=== PATIENT | female | born 1985 | race Caucasian/White ===

== ENCOUNTER 2023-10-30 19:10 | Outpatient (REF) | payer BC, SELFPAY ==
[2023-11-05 04:08] LABS: Age Gdln ACOG Testing Note (.); HPV Aptima Negative (Negative); IGP, Aptima HPV, rfx 16/18,45 Note (.)
== END 2023-10-30 19:11 | disposition home or self-care (01) ==
LOC: LAB 19:10
PROVIDERS: Visit Provider Obstetrics & Gynecology
DX: Z01.419 Encounter for gynecological examination (general) (routine) without abnormal findings (principal)
CPT/HCPCS: 87624; G0145

== ENCOUNTER 2024-12-14 01:16 | Emergency (ER) | payer BC, SELFPAY ==
[2024-12-14] VITALS (21 sets, daily range): BP systolic 83–108; BP diastolic 55–74; PULSE 82; TEMP 36.6; O2SAT 96–100; BMI 33.5
--- OUTSIDE RECORDS SUMMARY | 2024-12-14 01:23 | XMS_ITS | CCD ---
Author Organization [facility]ini[facility] Care Team Providers Care Awning Installer Name Role Phone ARISTIDES ., DR KELLY Consulting Unavailable ARISTIDES ., DR KELLY Primary Care Unavailable ARISTIDES ., DR KELLY Admitting Unavailable ARISTIDES ., DR KELLY Attending Unavailable ARISTIDES ., DR KELLY Primary Care Unavailable RADHA, TAHIR Attending Unavailable RADHA, TAHIR Consulting Unavailable RADHA, TAHIR Admitting Unavailable ARISTIDES ., DR KELLY Attending Unavailable ARISTIDES ., DR KELLY Consulting Unavailable ARISTIDES ., DR KELLY Primary Care Unavailable ARISTIDES ., DR KELLY Admitting Unavailable ARISTIDES ., DR KELLY Attending Unavailable ARISTIDES ., DR KELLY Primary Care Unavailable ARISTIDES ., DR KELLY Admitting Unavailable ARISTIDES ., DR KELLY Attending Unavailable ARISTIDES ., DR KELLY Consulting Unavailable ARISTIDES ., DR KELLY Primary Care Unavailable ARISTIDES ., DR KELLY Admitting Unavailable GEMBUS, NICO Consulting Unavailable ADAM CAMACHO Consulting Unavailable ARISTIDES ., DR KELLY Consulting Unavailable ARISTIDES ., DR KELLY Primary Care Unavailable ARISTIDES ., DR KELLY Admitting Unavailable ARISTIDES ., DR KELLY Attending Unavailable ANUJA, GORDO Attending Unavailable ANUJA, GORDO Attending Unavailable ANUJA, GORDO Attending Unavailable ANUJA, GORDO Attending Unavailable ANUJA, GORDO Attending Unavailable ANUJA, GORDO Attending Unavailable ANUJA, GORDO Attending Unavailable Problems Active Problems Problem Classification Problem Date Documented Da te Episodic/Chronic Other nutritional; endocrine; and metabolic disorders (1 source) Obesity, unspecified; Translations: [OBESITY UNSPECIFIED] Onset: 10-03-2022 Chronic Other nutritional; endocrine; and metabolic disorders (1 source) Body mass index (BMI) 36.0-36.9, adult; Translations: [BODY MASS INDEX BMI 36.0-36.9 ADULT] Onset: 10-03-2022 Chronic Other upper respiratory infections (4 sources) Acute pharyngitis, unspecified; Translations: [ACUTE PHARYNGITIS UNSPECIFIED] Onset: 02-10-2023 Episodic Unclassified (1 source) CONTACT W/AND (SUSP) EXPOS COVID-19; Translations: [CONTACT W/AND (SUSP) EXPOS COVID-19] Onset: 10-03-2022 Past or Other Problems Problem Classification Problem Date Documented Date Episodic/Chronic Contraceptive and procreative management (5 sources) Encounter for sterilization; Translations: [ENCOUNTER FOR STERILIZATION] Onset: 09-21-2022 Episodic Immunizations and screening for infectious disease (1 source) Encounter for screening for human papillomavirus (HPV); Translations: [ENC SCREENING HUMAN PAPILLOMAVIRUS] Onset: 07-16-2022 Episodic Other nutritional; endocrine; and metabolic disorders (1 source) Abnormal weight gain; Translations: [ABNORMAL WEIGHT GAIN] Onset: 07-16-2022 Episodic Other screening for suspected conditions (not mental disorders or infectious disease) (4 sources) Encounter for screening for malignant neoplasm of cervix; Translations: [ENC SCREENING MALIG NEOPLASM CERV] Onset: 07-15-2022 Episodic Residual codes; unclassified (1 source) Acquired absence of other specified parts of digestive tract; Translations: [ACQ ABSENCE OTH PART DIGESTV TRACT] Onset: 10-03-2022 Episodic Results Test Name Value Interpretation Reference Range Facility STREPT SCREENon 02-10-2023 STREP SCREEN A Positive Abnormal NEGATIVE [facility] Comment on above: Performed By: #### S SCRN #### [facility] [address] [place] [address] Dr. Imtiaz Ramírez CBC AUTO DIFFon 09-27-2022 BASO # 0.0 103/ul Normal 0.0-0.1 [facility] Comment on above: Performed By: #### C BC #### [facility] [address] [address] [address] Imtiaz Ramírez Basophils/100 WBC (Bld) 0.4 % Normal 0.2-2.0 [facility] Comment on above: Performed By: #### C BC #### [facility] [address] [place] [address] Dr. Imtiaz Ramírez EO # 0.1 103/ul Normal 0.0-0.7 [facility] Comment on above: Performed By: #### C BC #### [facility] [address] [place] [address] Dr. Imtiaz Ramírez Eosinophils/100 WBC (Bld) 1.7 % Normal 0.9-7.0 [facility] Comment on above: Performed By: #### C BC #### [facility] [address] [place] [address] Dr. Imtiaz Ramírez Erythrocyte distribution width (RBC) [Ratio] 11.3 % Normal 11.0-15.0 [facility] Comment on above: Performed By: #### C BC #### [facility] [address] [place] [address] Dr. Imtiaz Ramírez Hematocrit (Bld) [Volume fraction] 40.7 % Normal 36.0-48.0 [facility] Comment on above: Performed By: #### C BC #### [facility] [address] [place] [address] Dr. Imtiaz Ramírez Hemoglobin (Bld) [Mass/Vol] 13.7 g/dL Normal 12.0-16.0 [facility] Comment on above: Performed By: #### C BC #### [facility] [address] [place] [address] Dr. Imtiaz Ramírez IG # 0.01 10e3/ul Normal 0.00-0.03 [facility] Comment on above: Performed By: #### C BC #### [facility] [address] [place] [address] Dr. Imtiaz Ramírez IG % 0.2 % Normal 0.0-0.5 [facility] Comment on above: Performed By: #### C BC #### [facility] [address] [place] [address] Dr. Imtiaz Ramírez LYMPH # 2.1 103/ul Normal 1.2-3.8 [facility] Comment on above: Performed By: #### C BC #### [facility] [address] [place] [address] Dr. Imtiaz Ramírez Lymphocytes/100 WBC (Bld) 43.3 % Normal 20.5-60.0 [facility] Comment on above: Performed By: #### C BC #### [facility] [address] [place] [address] Dr. Imtiaz Ramírez MANUAL DIFF REQ NO Normal [facility] Comment on above: Performed By: #### C BC #### [facility] [address] [place] [address] Dr. Imtiaz Ramírez MCH (RBC) [Entitic mass] 29.9 pg Normal 26.7-34.0 [facility] Comment on above: Performed By: #### C BC #### [facility] [address] [place] [address] Dr. Imtiaz Ramírez MCHC (RBC) [Mass/Vol] 33.7 g/dL Normal 29.9-35.2 [facility] Comment on above: Performed By: #### C BC #### [facility] [address] [place] [address] Dr. Imtiaz Ramírez MCV (RBC) [Entitic vol] 88.9 fL Normal 81.0-99.0 [facility] Comment on above: Performed By: #### C BC #### [facility] [address] [place] [address] Dr. Imtiaz Ramírez MONO # 0.5 103/ul Normal 0.3-0.8 [facility] Comment on above: Performed By: #### C BC #### [facility] [address] [place] [address] Dr. Imtiaz Ramírez Monocytes/100 WBC (Bld) 9.5 % Normal 1.7-12.0 [facility] Comment on above: Performed By: #### C BC #### [facility] [address] [place] [address] Dr. Imtiaz Ramírez NEUT # 2.1 103/ul Normal 1.4-6.5 [facility] Comment on above: Performed By: #### C BC #### [facility] [address] [place] [address] Dr. Imtiaz Ramírez Neutrophils/100 WBC (Bld) 44.9 % Normal 43.0-75.0 [facility] Comment on above: Performed By: #### C BC #### [facility] [address] [address] [address] Imitaz Ramírez Platelet mean volume (Bld) [Entitic vol] 10.6 fL Normal 9.5-13.5 [facility] Comment on above: Performed By: #### C BC #### [facility] [address] [address] [address] Imtiaz Ramírez PLT 284 103/ul Normal 150-450 [facility] Comment on above: Performed By: #### C BC #### [facility] [address] [address] [address] Imtiaz Ramírez RBC 4.58 106/ul Normal 4.20-5.40 [facility] Comment on above: Performed By: #### C BC #### [facility] [address] [place] [address] Dr. Imtiaz Ramírez WBC 4.8 103/ul Normal 4.0-11.0 [facility] Comment on above: Performed By: #### C BC #### [facility] [address] [place] [address] Dr. Imtiaz Ramírez [facility] 09[facility]06 SARS-CoV-2 (COVID-19) RNA FOUZIA+probe Ql (Unsp spec) Not detected Normal NOT DETECTED [facility] Comment on above: Result Comment: This test is not yet approved or cleared by the [place] FDA. When there are no FDA-approved or cleared tests available, and other criteria are met, FDA can make tests available under an emergency access mechanism called an Emergency Use Authorization (EUA). The EUA for this test is supported by the Ins[employer] Eng[employer]eman of Health and Human Service's (HHS's) declaration that circumstances exist to justify the emergency use of in vitro diagnostics for the detection and/or diagnosis of the virus that causes COVID-19. This EUA will remain in effect (meaning this test can be used) for the duration of the COVID-19 declaration justifying emergency of IVDs, unless it is terminated or revoked by FDA (after which the test may no longer be used). When diagnostic testing is negative, the possibility of a false negative should be considered in the context of a patient's recent exposures and the presence of clinical signs and symptoms consistent with SARS-CoV-2. Performed By: #### C VDTBH #### [facility] [address] [place] [address] Dr. Imtiaz Ramírez PREG QUANT HCGon 09-27-2022 HCG QUANT 1 mIU/mL Normal [facility] Comment on above: Performed By: #### P REGQNT #### [facility] [address] [place] [address] Dr. Imtiaz Ramírez HCG RANGE SEE BELOW Normal [facility] Comment on above: Result Comment: 5-50 0.2-1 WEEK 50-500 1-2 WEEKS 100-5,000 2-3 WEEKS 500-10,000 3-4 WEEKS 1,000-50,000 4-5 WEEKS 10,000-100,000 5-6 WEEKS 15,000-200,000 6-8 WEEKS 10,000-100,000 2-3 MONTHS Performed By: #### P REGQNT #### [facility] [address] [place] [address] Dr. Imtiaz Ramírez PAP ACOG PANEL 2: 30 to 65on 07-21-2022 . . Normal [facility] Comment on above: Result Comment: Perf ormed at: WB Performed By: #### [id number] #### [facility] [address] [place] [address] Dr. Imtiaz Ramírez Age Gdln ACOG Testing 30-65 Normal [facility] Comment on above: Performed By: #### [id number] #### [facility] [address] [place] [address] Dr. Imtiaz Ramírez DIAGNOSIS: Comment Normal [facility] Comment on above: Result Comment: NEGA TIVE FOR INTRAEPITHELIAL LESION OR MALIGNANCY. Performed at: WB Performed By: #### [id number] #### [facility] [address] [place] [address] Dr. Imtiaz Ramírez HPV Aptima Negative Normal Negative [facility] Comment on above: Result Comment: This nucleic acid amplification test detects fourteen high-risk HPV types (16,18,31,33,35,39,45,51,52,56,58,59,66,68) without differentiation. Performed at: =G Performed By: #### [id number] #### [facility] [address] [place] [address] Dr. Imtiaz Ramírez Methodology: Comment Normal [facility] Comment on above: Result Comment: This liquid based ThinPrep(R) pap test was screened with the use of an image guided system. Performed at: WB Performed By: #### [id number] #### [facility] [address] [place] [address] Dr. Imtiaz Ramírez Note: Comment Normal [facility] Comment on above: Result Comment: The Pap smear is a screening test designed to aid in the detection of premalignant and malignant conditions of the uterine cervix. It is not a diagnostic procedure and should not be used as the sole means of detecting cervical cancer. Both false-positive and false-negative reports do occur. . Performed at: WB Performed By: #### [id number] #### [facility] [address] [place] [address] Dr. Imtiaz Ramírez Performed by: Comment Normal [facility] Comment on above: Result Comment: Anders Foster, Airport Sales Agent (ASCP) Performed at: WB Performed By: #### [id number] #### [facility] [address] [place] [address] Dr. Imtiaz Ramírez Specimen adequacy: Comment Normal [facility] Comment on above: Result Comment: Sati sfactory for evaluation. Endocervical and/or squamous metaplastic cells (endocervical component) are present. Performed at: WB Performed By: #### [id number] #### [facility] [address] [place] [address] Dr. Imtiaz Ramírez CBC AUTO DIFFon 07-15-2022 BASO # 0.0 103/ul Normal 0.0-0.1 [facility] Comment on above: Performed By: #### C BC #### [facility] [address] [place] [address] Dr. Imtiaz Ramírez Basophils/100 WBC (Bld) 0.4 % Normal 0.2-2.0 [facility] Comment on above: Performed By: #### C BC #### [facility] [address] [place] [address] Dr. Imtiaz Ramírez EO # 0.1 103/ul Normal 0.0-0.7 [facility] Comment on above: Performed By: #### C BC #### [facility] [address] [place] [address] Dr. Imtiaz Ramírez Eosinophils/100 WBC (Bld) 1.7 % Normal 0.9-7.0 [facility] Comment on above: Performed By: #### C BC #### [facility] [address] [place] [address] Dr. Imtiaz Ramírez Erythrocyte distribution width (RBC) [Ratio] 11.7 % Normal 11.0-15.0 [facility] Comment on above: Performed By: #### C BC #### [facility] [address] [place] [address] Dr. Imtiaz Ramírez Hematocrit (Bld) [Volume fraction] 38.6 % Normal 36.0-48.0 [facility] Comment on above: Performed By: #### C BC #### [facility] [address] [place] [address] Dr. Imtiaz Ramírez Hemoglobin (Bld) [Mass/Vol] 12.9 g/dL Normal 12.0-16.0 [facility] Comment on above: Performed By: #### C BC #### [facility] [address] [place] [address] Dr. Imtiaz Ramírez IG # 0.02 10e3/ul Normal 0.00-0.03 [facility] Comment on above: Performed By: #### C BC #### [facility] [address] [place] [address] Dr. Imtiaz Ramírez IG % 0.3 % Normal 0.0-0.5 [facility] Comment on above: Performed By: #### C BC #### [facility] [address] [place] [address] Dr. Imtiaz Ramírez LYMPH # 2.3 103/ul Normal 1.2-3.8 [facility] Comment on above: Performed By: #### C BC #### [facility] [address] [place] [address] Dr. Imtiaz Ramírez Lymphocytes/100 WBC (Bld) 30.8 % Normal 20.5-60.0 [facility] Comment on above: Performed By: #### C BC #### [facility] [address] [place] [address] Dr. Imtiaz Ramírez MANUAL DIFF REQ NO Normal [facility] Comment on above: Performed By: #### C BC #### [facility] [address] [place] [address] Dr. Imtiaz Ramírez MCH (RBC) [Entitic mass] 30.2 pg Normal 26.7-34.0 [facility] Comment on above: Performed By: #### C BC #### [facility] [address] [place] [address] Dr. Imtiaz Ramírez MCHC (RBC) [Mass/Vol] 33.4 g/dL Normal 29.9-35.2 [facility] Comment on above: Performed By: #### C BC #### [facility] [address] [place] [address] Dr. Imtiaz Ramírez MCV (RBC) [Entitic vol] 90.4 fL Normal 81.0-99.0 [facility] Comment on above: Performed By: #### C BC #### [facility] [address] [place] [address] Dr. Imtiaz Ramírez MONO # 0.7 103/ul Normal 0.3-0.8 [facility] Comment on above: Performed By: #### C BC #### [facility] [address] [place] [address] Dr. Imtiaz Ramírez Monocytes/100 WBC (Bld) 9.9 % Normal 1.7-12.0 [facility] Comment on above: Performed By: #### C BC #### [facility] [address] [place] [address] Dr. Imtiaz Ramírez NEUT # 4.2 103/ul Normal 1.4-6.5 [facility] Comment on above: Performed By: #### C BC #### [facility] [address] [address] [address] Imtiaz Ramírez Neutrophils/100 WBC (Bld) 56.9 % Normal 43.0-75.0 [facility] Comment on above: Performed By: #### C BC #### [facility] [address] [address] [address] Imtiaz Ramírez Platelet mean volume (Bld) [Entitic vol] 10.7 fL Normal 9.5-13.5 [facility] Comment on above: Performed By: #### C BC #### [facility] [address] [place] [address] Dr. Imtiaz Ramírez PLT 286 103/ul Normal 150-450 [facility] Comment on above: Performed By: #### C BC #### [facility] [address] [place] [address] Dr. Imtiaz Ramírez RBC 4.27 106/ul Normal 4.20-5.40 [facility] Comment on above: Performed By: #### C BC #### [facility] [address] [place] [address] Dr. Imtiaz Ramírez WBC 7.4 103/ul Normal 4.0-11.0 [facility] Comment on above: Performed By: #### C BC #### [facility] [address] [place] [address] Dr. Imtiaz Ramírez FREE T4on 07-15-2022 Free T4 [Mass/Vol] 0.77 ng/dL Normal 0.76-1.46 [facility] Comment on above: Performed By: #### F T4 #### [facility] [address] [place] [address] Dr. Imtiaz Ramírez GLYCOHEMOGLOBIN A1Con 2021 ADA RECOMMENDATION SEE BELOW Normal [facility] Comment on above: Result Comment: ADA RECOMMENDED LIMIT 4.0 - 6.0 ADA THERAPEUTIC TARGET < 7.0 ACTION SUGGESTED > 7.0 Performed By: #### A 1C #### [facility] [address] [place] [address] Dr. Imtiaz Ramírez Glucose [Mass/Vol] 97 mg/dL Normal [facility] Comment on above: Performed By: #### A 1C #### [facility] [address] [place], [place] [address] Dr. Imtiaz Ramírez HbA1c (Bld) [Mass fraction] 5.0 % Normal 4.5-6.2 [facility] Comment on above: Performed By: #### A 1C #### [facility] [address] [place], [place] [address] Dr. Imtiaz Ramírez TSHon 07-15-2022 TSH 3.280 uIU/mL Normal 0.358-3.740 [facility] Comment on above: Performed By: #### T SH #### [facility] [address] [place], [place] [address] Dr. Imtiaz Ramírez Encounters Encounter Date Encounter Type Care Provider Facility Start: 11-16-2024 End: 11-16-2024 ambulatory GORDO ANUJA Not Available Start: 08-24-2024 End: 08-24-2024 ambulatory GORDO ANUJA Not Available Start: 05-25-2024 End: 05-25-2024 ambulatory GORDO ANUJA Not Available Start: 04-22-2024 End: 04-22-2024 ambulatory GORDO ANUJA Not Available Start: 01-22-2024 End: 01-22-2024 ambulatory GORDO ANUJA Not Available Start: 12-25-2023 End: 12-25-2023 ambulatory GORDO ANUJA Not Available Start: 11-27-2023 End: 11-27-2023 ambulatory GORDO ANUJA Not Available Start: 02-10-2023 End: 02-10-[address] LETICIA SALAZAR . Facility:[facility] Start: 10-03-2022 Encounter for prepro cedural laboratory examination DR LETICIA SALAZAR . [facility] Start: 09-30-2022 End: 09-30-[address] LETICIA SALAZAR . Facility[facility] Start: 09-27-2022 End: 09-28-[address] LETICIA SALAZAR . Facility[facility] Start: 09-27-2022 End: 09-28-2022 Encounter for preprocedural laboratory examination DR LETICIA SALAZAR . Facility:[facility] Start: 09-21-2022 Encounter for other preprocedural examination DR LETICIA SALAZAR . [facility] Start: 09-16-2022 End: 09-17-[address] LETICIA SALAZAR . Facility:[facility] Start: 09-16-2022 End: 09-17-2022 Encounter for other preprocedural examination DR LETICIA SALAZAR . Facility:[facility] Start: 07-15-2022 End: 07-15-[address] LETICIA SALAZAR . Facility:[facility] Start: 07-15-2022 End: 07-16-[address] LETICIA SALAZAR . Facility:[facility] Payers Date Payer Category Payer Unknown [id number] 2.16.84 [id number] 1987 Unknown [id number] 2.16.84 [id number] 1987 Unknown [id number] 2.16.84 [id number] 1987 Unknown [id number] 2.16.84 [id number] 1987 Unknown [id number] 2.16.84 [id number] 1987 Unknown [id number] 2.16.84 [id number] 1987 Unknown [id number] 2.16.84 [id number] 1987 Unknown [id number] 2.16.84 [id number] 1987 Unknown [id number] 2.16.84 [id number] 1987 Unknown [id number] 2.16.84 [id number] 1987 Unknown [id number] 2.16.84 [id number] 1987 Unknown [id number] 2.16.84 [id number] 1987 Unknown [id number] 2.16.84 [id number] 1959 Unknown [id number] 1959 Unknown [id number] Clinical Note 09-30-2022 Note Date & Type Note Facility 09-30-2022 Note OPERATIVE NOTE OPERATION DATE: 09/30/2022 PROCEDURE: Robotic Da Elijah assisted bilateral laparoscopic salpingectomy. PREOPERATIVE DIAGNOSIS: Desires permanent sterilization, multiparity. POSTOPERATIVE DIAGNOSIS: Desires permanent sterilization, multiparity. ANESTHESIA: General. SURGEON: Leticia Salazar D.O. FOUNDATION DIGGER: WILIAN Patten URINE OUTPUT: Yellow and clear. FINDINGS: Normal appearing ovaries, uterus and tubes. SPECIMEN: Bilateral tubes. BLOOD LOSS: 10 mL PROCEDURE: The patient was taken back to the OR where she was prepped and draped in the normal sterile fashion after being placed in the dorsal lithotomy position, after being placed under general anesthesia without difficulty. A wet sponge stick was placed into the patient's vagina. Attention was then turned to the patient's abdomen, where a scalpel was used to make a small infraumbilical incision. The S retractors were then used to dissect the underlying layers until the fascia could be seen. The fascia was then grasped with Rahel clamps and tented up. A knife was then used to make a small incision to the fascia. The muscle was identified, at that time two sutures of #0 Vicryl on a GI needle was then used and placed through the fascia. The peritoneum was then identified and entered bluntly. The 10-4 Hortencia was then placed into the patient's abdomen. This was confirmed with direct visualization of the bowel, using the laparoscope. The patient's abdomen was then insufflated using approximately 4 liters of CO2 gas. Survey of the patient's abdomen demonstrated normal appearing ovaries, uterus and tubes. A second and third lateral port, which was 7-8 mm in size and 5 mm in size, was then placed laterally after incision was made in the skin under direct visualization. The patient's tube on the patient's right side was identified. The tube was then tented up using a grasper. The LigaSure was used to transect and coagulate the mesosalpinx from the fimbriated end to the insertion at the uterus; the tube was amputated and removed in its entirety. Excellent hemostasis was noted. This was performed on the contralateral side as well. The lateral ports were then removed under direct visualization with excellent hemostasis. The abdomen was desufflated. All instruments were removed from the patient's abdomen. The fascia was closed using the #0 Vicryl on GI needle. The skin was closed using 4-0 Vicryl subcuticularly. All instruments were removed from the patient's vagina as well. The patient was taken out of the dorsal lithotomy position and placed in the supine position and taken to recovery in stable condition. Sponge, lap and needle counts were correct x2. [facility] Summary Purpose Family History No Family History Records FoundNo Family History Records Found Advance Directives No Advanced Directives Records FoundNo Advanced Directives Records Found Additional Source Comments INFORMATION SOURCE (unrecogn ized section and content) DATE CREATED AUTHOR 02/14/2023 [facility] DATE CREATED AUTHOR AUTHOR'S ORGANIZ ATION 11/17/2024 [facility] FOR RECORDS PERTAINING TO PATIENTS WHO ARE OR HAVE BEEN ENROLLED IN A CHEMICAL DEPENDENCY/SUBSTANCEABUSE PROGRAM, SOME INFORMATION MAY BE OMITTED. This clinical summary was aggregated from multiple sources. Caution should be exercised in using it in the provision of clinical care. This summary normalizes information from multiple sources, and as a consequence, information in this document may materially change the coding, format and clinical context of patient data. In addition, data may be omitted in some cases. CLINICAL DECISIONS SHOULD BE BASED ON THE PRIMARY CLINICAL RECORDS. [facility] [employer] provides no warranty or guarantee of the accuracy or completeness of information in this document.
--- NOTE | 2024-12-14 01:27 | ED_ITS ---
HPI - Nausea/Vomiting/Diarrhea General Chief complaint: Nausea/Vomiting/Diarrhea Stated complaint: FLU LIKE SYMPTOMS Time Seen by Provider: 12/14/24 01:22 Source: patient Mode of arrival: ambulance History of Present Illness HPI Narrative: presents with recurrent vomiting( 3 times ) and watery diarrhea. No pain. Tonight became light headed and everything got dark. She then sat down. Did not pass out and vision returned Related Data Home Medications ?Medication ?Instructions ?Recorded ?Confirmed valacyclovir 500 mg tablet mg 12/14/24 Allergies Allergy/AdvReac Type Severity Reaction Status Date / Time No Known Drug Allergies Allergy Verified 12/14/24 01:24 Review of Systems ROS Status of ROS 10 or more systems reviewed and unremark able except as noted in history and below PFSH PFSH Social History Little interest or pleasure in doing things: not at all Feeling down, depressed, or hopeless: not at all Exam Constitutional Vital Signs, click to edit/add: Last Vital Signs Temp 97.9 F 12/14/24 01:18 Pulse 82 12/14/24 01:18 Resp 16 12/14/24 01:18 BP 102/70 12/14/24 04:02 Pulse Ox 97 12/14/24 04:01 O2 Del Method Room Air 12/14/24 01:18 Common normals: no apparent distress, average body habitus, oriented x3, no limitations, healthy appearing, alert and well nourished [facility] Common normals: normocephalic and head/scalp atraumatic Eye Common normals: PERRL, EOMs intact bilaterally and conjunctivae normal Respiratory Common normals: normal respiratory effort, no retractions, no use of accessory muscles and clear to auscultation bilaterally Cardio Common normals: regular rate, regular rhythm, S1 normal heart sound and S2 normal heart sound GI Common normals: Normal to inspection, nondistended, normoactive bowel sounds present, soft to palpation and non-tender Extremity Common normals: normal to inspection and full ROM Neuro Common normals: oriented x3, CN's II-XII intact bilaterally and moves all extremities Psych Appearance: grossly normal Course Vital Signs Vital signs: Vital Signs Temperature 97.9 F 12/14/24 01:18 Pulse Rate 82 12/14/24 01:18 Respiratory Rate 16 12/14/24 01:18 Blood Pressure 101/62 12/14/24 01:18 Pulse Oximetry 100 12/14/24 01:18 Oxygen Delivery Method Room Air 12/14/24 01:18 Temperature 97.9 F 12/14/24 01:18 Pulse Rate 82 12/14/24 01:18 Respiratory Rate 16 12/14/24 01:18 Blood Pressure 102/70 12/14/24 04:02 Pulse Oximetry 97 12/14/24 04:01 Oxygen Delivery Method Room Air 12/14/24 01:18 MDM - Nausea/Vomiting/Diarrhea MDM Narrative Medical decision making narrative: patient presents with gastroenteritis manifested by recurrent vomiting and diarrhea. near syncopal episode at home and had to sit down to avoid passing out. Feeling better after hydration and zofran. Able to drink H20 discharged home to follow up with her doctor in the next few days Lab Data Labs: Lab Results 12/14/24 12/14/24 Range/Units 01:20 02:55 WBC 14.0 H (4.0-11.0) 10^3/uL RBC 4.84 (4.20-5.40) 10^6/uL Hgb 14.7 (12.0-16.0) g/dL Hct 44.2 (36.0-48.0) % MCV 91.3 (81.0-99.0) fL MCH 30.4 (26.7-34.0) pg MCHC 33.3 (29.9-35.2) g/dL RDW 11.7 (11.0-15.0) % Plt Count 293 (150-450) 10^3/uL MPV 10.9 (9.5-13.5) fL Seg Neuts % (Manual) 96.0 H (43.0-75.0) Band Neutrophils % 0.0 (0-5) % Lymphocytes % (Manual) 0.0 L (20.5-60.0) % Monocytes % (Manual) 3.0 (1.7-12.0) % Eosinophils % (Manual) 0.0 L (0.9-7.0) % Basophils % (Manual) 0.0 L (0.2-2.0) % Neutrophils # (Manual) 13.44 H (1.4-6.5) 10^3/uL Band Neutrophils # 0.0 (0.0-0.3) 10^3/uL Lymphocytes # (Manual) 0.00 L (1.20-3.80) 10^3/uL Monocytes # (Manual) 0.42 (0.30-0.80) 10^3/uL Eosinophils # (Manual) 0.00 (0.00-0.70) 10^3/uL Basophils # (Manual) 0.00 (0.00-0.10) 10^3/uL Toxic Granulation 1+ Sodium 137 (136-145) mmol/L Potassium 4.0 (3.5-5.1) mmol/L Chloride 102 (98-107) mmol/L Carbon Dioxide 25.8 (21.0-32.0) mmol/L Anion Gap 13.2 BUN 14.0 (7.0-18.0) mg/dL Creatinine 0.99 (0.55-1.02) mg/dL Est GFR ( Amer) >60 (>=60 mL/min/1.73m^2) Est GFR (Non-Af Amer) >60 (>=60 mL/min/1.73m^2) BUN/Creatinine Ratio 14.1 Glucose 159 H (74-106) mg/dL Lactate 1.1 (0.4-2.0) mmol/L Calcium 8.5 (8.5-10.1) mg/dL Total Bilirubin 0.7 (0.2-1.0) mg/dL AST 16 (15-37) U/L ALT 23 (14-59) U/L Alkaline Phosphatase 70 (46-116) U/L Total Protein 7.5 (6.4-8.2) g/dL Albumin 3.8 (3.4-5.0) g/dL Globulin 3.7 g/dL Albumin/Globulin Ratio 1.0 Urine Color Yellow (YELLOW) Urine Clarity Clear (CLEAR) Urine pH 6.0 (5.0-9.0) Ur Specific [place] 1.025 (1.005-1.025) Urine Protein Trace (NEG/TRACE) mg/dL Urine Glucose (UA) Negative (NEGATIVE) mg/dL Urine Ketones Trace A (NEGATIVE) mg/dL Urine Occult Blood Negative (NEGATIVE) Urine Nitrite Negative (NEGATIVE) Urine Bilirubin Negative (NEGATIVE) Urine Urobilinogen 0.2 (0.2-1.0) EU/dL Ur Leukocyte Esterase Negative (NEGATIVE) Urine RBC 0-2 (0-2) #/HPF Urine WBC 0-2 A (NONE SEEN) #/HPF Ur Squamous Epith Cells Few A (NONE/RARE) #/LPF Urine Crystals None seen (None Seen) #/HPF Urine Bacteria Small A (NONE SEEN) #/HPF Urine Casts None seen (NONE SEEN) #/LPF Urine Mucus Trace A (NONE SEEN) Ur [place] Indicated[place] [place] Discharge Chief Complaint: Nausea/Vomiting/Diarrhea Clinical Impression: Gastroenteritis, Dehydration Patient Disposition: Home, Self-Care Mode of Transportation: Private Vehicle Prescriptions / Home Meds: No Action valacyclovir 500 mg tablet Print Language: Bulgarian Instructions: Dehydration (ED), Gastroenteritis (ED) Referrals: Physician,Non-Staff, MD [Primary Care Provider] - 1 week
[2024-12-14 01:34] LABS: Hematocrit 44.2 % (36.0-48.0); Hemoglobin 14.7 g/dL (12.0-16.0); Mean Corpuscular HGB Conc 33.3 g/dL (29.9-35.2); Mean Corpuscular Hemoglobin 30.4 pg (26.7-34.0); Mean Corpuscular Volume 91.3 fL (81.0-99.0); Mean Platelet Volume 10.9 fL (9.5-13.5); Platelet Count 293 10^3/uL (150-450); Red Blood Count 4.84 10^6/uL (4.20-5.40); Red Cell Distribution Width 11.7 % (11.0-15.0)
[2024-12-14] MEDS: 0.9 % SODIUM CHLORIDE 1,000 ML 999 ML IV ×2 (01:39→02:54)
[2024-12-14] MEDS: ONDANSETRON PF 4 MG/2 ML VIAL IV (01:39)
[2024-12-14 01:45] LABS: Alanine Aminotransferase 23 U/L (14-59); Albumin Level 3.8 g/dL (3.4-5.0); Alkaline Phosphatase 70 U/L (46-116); Anion Gap 13.2; Aspartate Amino Transferase 16 U/L (15-37); BUN Creatinine Ratio 14.1; Bilirubin Total 0.7 mg/dL (0.2-1.0); Calcium 8.5 mg/dL (8.5-10.1); Carbon Dioxide 25.8 mmol/L (21.0-32.0); Chloride 102 mmol/L (98-107); Estimated GFR (African America >60 (>=60 mL/min/1.73m^2); Estimated GFR (Non-African Ame >60 (>=60 mL/min/1.73m^2); Globulin 3.7 g/dL; Glucose 159 mg/dL (74-106); Sodium 137 mmol/L (136-145); Total Protein 7.5 g/dL (6.4-8.2)
[2024-12-14 01:48] LABS: Lactate/Lactic Acid 1.1 mmol/L (0.4-2.0)
[2024-12-14 01:53] LABS: Segmented Neut Absolute Manual 13.44 10^3/uL (1.4-6.5)
[2024-12-14 03:02] LABS: Bilirubin Urine NEGATIVE (NEGATIVE); Blood Urine NEGATIVE (NEGATIVE); Clarity Urine CLEAR (CLEAR); Color Urine YELLOW (YELLOW); Glucose Urine UA NEGATIVE (NEGATIVE); Ketones Urine TRACE mg/dL (NEGATIVE); Leukocyte Esterase Urine NEGATIVE (NEGATIVE); Nitrite Urine NEGATIVE (NEGATIVE); Protein Urine TRACE mg/dL (NEG/TRACE); Specific Gravity Urine 1.025 (1.005-1.025); Urobilinogen Urine 0.2 EU/dL (0.2-1.0)
[2024-12-14 03:10] LABS: Bacteria Urine SMALL #/HPF (NONE SEEN); Mucus Urine TRACE (NONE SEEN); RBC Urine 0-2 #/HPF (0-2); Squamous Epithelial Cell Urine FEW #/LPF (NONE/RARE); WBC Urine 0-2 #/HPF (NONE SEEN)
[2024-12-14 03:11] LABS: Cast Seen? NONE SEEN #/LPF (NONE SEEN); Crystals Seen? None Seen #/HPF (None Seen); Urine Culture Indicated YES-FRMC
[2024-12-14 11:07] LABS: Monocytes Absolute Manual 0.56 10^3/uL (0.30-0.80)
== END 2024-12-14 04:11 | disposition home or self-care (01) ==
PROVIDERS: Emergency Provider Internal Medicine
DX: E86.0 Dehydration (principal); K52.9 Noninfective gastroenteritis and colitis, unspecified; R82.998 Other abnormal findings in urine
CPT/HCPCS: 36415; 80053; 81001; 83605; 85007; 85027; 87086; 96361; 96374; 99284; J2405

== ENCOUNTER 2025-05-03 15:10 | Outpatient (REF) | payer BC, SELFPAY ==
--- OUTSIDE RECORDS SUMMARY | 2025-05-03 08:30 | XMS_ITS | Encounter Summary ---
Author Organization [facility] Address [address] [place] [address] Care Team Providers Care Processing Supervisor Name Role Phone Singh Sheridan MD Primary Care Provider [phone] Reason for Visit * Reason Comments Well Women Visit Encounter Details Date Type Department Care Team (Late st Contact Info) Description 05/03/2025 8:30 AM EDT Office Visit [facility] [address] [address] Justin Salazar DO [address] [place], [facility] Well woman exam with routine gynecological exam Social History Tobacco Use Types Packs/Day Years Used Date Smoking Tobacco: Never Smokeless Tobacco: Never Alcohol Use Standard Drinks/Week Comments Yes 0 (1 standard drink = 0.6 oz pur e alcohol) occasional alcohol abuse Comments No Sex and Gender Information Value Date Recorded Sex Assigned at Choose not to disclose 10:04 AM EDT Legal Sex Female 7:12 PM EDT Gender Identity Choose not to disclose 10:04 AM EDT Sexual Orientation Not on file documented as of this encounter Last Filed Vital Signs Vital Sign Reading Time Taken Comments Blood Pressure 114/80 05/03/2025 9:01 AM EDT Pulse - - Temperature - - Respiratory Rate - - Oxygen Saturation - - Inhaled Oxygen Concentration - - Weight 94.5 kg (208 lb 4 oz) 05/03/2025 9:01 AM EDT Height - - Body Mass Index 35.75 11/27/2023 8:34 AM EST documented in this encounter Progress Notes * Carmencita Valdez, AUTOMOBILE MECHANIC RADIATOR - 05/03/2025 8:30 AM EDT Reason for Appointment: Patient ID: Belinda Chavez is a 39 y.o. adult who presents for Well Women Visit Patient presents today for Annual Exam. MEDICATIONS Current Outpatient Medications Medication Instructions phentermine (ADIPEX-P) 37.5 mg, Oral, Daily before breakfast valACYclovir (VALTREX) 500 mg, Oral, Every morning ALLERGIES No Known Allergies PROBLEMS Active Ambulatory Problems Diagnosis Date Noted No Active Ambulatory Problems Resolved Ambulatory Problems Diagnosis Date Noted No Resolved Ambulatory Problems Past Medical History: Diagnosis Date Genital herpes simplex type 1 infection Nonsmoker Obesity (BMI 30-39.9) HISTORY PAST MEDICAL HISTORY SOCIAL HISTORY Past Medical History: Diagnosis Date Genital herpes simplex type 1 infection Nonsmoker Obesity (BMI 30-39.9) Social History Tobacco Use Smoking status: Never Smokeless tobacco: Never Substance Use Topics Alcohol use: Yes Comment: occasional alcohol abuse Drug use: Never FAMILY HISTORY Family History Problem Relation Name Age of Onset Hypothyroidism Mother No Known Problems Sister Diabetes type II Maternal Grandmother Lung cancer Maternal Grandfather SURGICAL HISTORY Past Surgical History: Procedure Laterality Date CHOLECYSTECTOMY 11/2016 TUBAL LIGATION 2021 REVIEW OF SYSTEMS Review of Systems: Review of Systems Constitutional: Negative. HENT: Negative. Eyes: Negative. Respiratory: Negative. Cardiovascular: Negative. Gastrointestinal: Negative. Genitourinary: Negative. Musculoskeletal: Negative. Skin: Negative. Neurological: Negative. All other systems reviewed and are negative. Hematological: Negative. Endocrine: Negative. Allergic/Immunologic: Negative. OBJECTIVE Objective: Physical Exam Constitutional: Appearance: Normal appearance. Belinda is well-developed. Genitourinary: Vulva normal. Cardiovascular: Rate and Rhythm: Normal rate and regular rhythm. Pulmonary: Effort: Pulmonary effort is normal. Breath sounds: Normal breath sounds. Abdominal: General: Bowel sounds are normal. There is no distension. Palpations: Abdomen is soft. Tenderness: There is no abdominal tenderness. There is no guarding or rebound. Musculoskeletal: General: No swelling. Normal range of motion. Right lower leg: No edema. Left lower leg: No edema. Neurological: Mental Status: Belinda is alert and oriented to person, place, and time. Skin: General: Skin is warm and dry. Psychiatric: Mood and Affect: Mood normal. Behavior: Behavior normal. Vitals and nursing note reviewed. Exam conducted with a industrial painter present. Vitals: Estimated body mass index is 35.75 kg/m?? as calculated from the following: Height as of 11/27/23: 5' 4 . Weight as of this encounter: 208 lb 4 oz. BP: 114/80 Patient's last menstrual period was 04/28/2025 (exact date). ASSESSMENT & PLAN ICD-10-CM 1. Well woman exam with routine gynecological exam Z01.419 Pap Smear HPV DNA probe, amplified Orders Placed This Encounter Procedures HPV DNA probe, amplified Annual Wellness Exam: Patient presents today for routine annual exam. Patient states she has no current complaints. Patients vitals were reviewed and within normal limits. Growth and development is noted to be appropriate for age. Menstrual history is noted to be regular with no concerns reported. No mental health concerns was expressed. Pap Smear: Speculum was inserted into the vagina and pap was obtained without difficulty. HPV testing was performed per age guideline. Patient was advised that pap results could take anywhere from 7 to 10 days to receive and our office will reach out to the patient with those once we have them. Patient can also view results via [employer]. I reinforced importance of condom use for STI prevention. Patient declined cultures to be performed with today's visit. Breast Exam: Upon examination, clinical breast exam was noted to be normal. Patient was counseled on breast self-awareness, including the importance of knowing what is normal for her own breasts and promptly reporting any changes such as new lumps, skin dimpling, nipple discharge, or pain. Screening mammogram recommended annually beginning at age 40 or earlier if risk factors are present. Discussed signs and symptoms of breast cancer and when to seek medical attention. Answered all patient questions. Contraceptive Counseling (if applicable): Patient is currently using tubal as a form of contraceptive. Follow Up: Patient is to return to our office in one year for annual exam unless needed otherwise. Documented by Carmencita Valdez LPN on behalf of: Justin Salazar DO documented in this encounter Plan of Treatment Upcoming Encounters Date Type Department Care Team (Late st Contact Info) Description 06/08/2025 3:50 PM EDT [facility] [address] [address] Gwen Rodarte PA [address] [place] [address] Scheduled Orders Name Type Priority Associated Diagnoses Orde r Schedule Pap Smear Pathology and Cytology Routine Well woman exam with routine gynecological exam Ordered: 05/03/2025 HPV DNA probe, amplified Microbiology Routine Well woman exam with routine gynecological exam Ordered: 05/03/2025 documented as of this encounter Visit Diagnoses Diagnosis Well woman exam with routine gynecological exam Routine gynecological examination documented in this encounter Care Teams Processing Supervisor Relationship Specialty Start Date End Date Singh Sheridan MD [address] [facility] [place] [address] PCP - General Family Medicine 02/14/25 documented as of this encounter
--- OUTSIDE RECORDS SUMMARY | 2025-05-03 15:13 | XMS_ITS | Clinical Summary ---
Author Organization [facility] Address [address] [facility] [place] [address] Care Team Providers Care Germ Drier Name Role Phone Singh Sheridan MD Primary Care Provider [phone] Allergies No known active allergies Medications valACYclovir (Valtrex) 500 MG tabletIndicati ons:Herpes simplex virus (HSV) hepatitis TAKE ONE TABLET BY MOUTH EVERY MORNING 90 tablet 3 4 Active phentermine (Adipex-P) 37.5 MG tabletIndicati ons:Encounter for weight management Take 1 tablet (37.5 mg) by mouth in the morning. Take before meals. 90 tablet 5 06/15/20 25 Active phentermine (Adipex-P) 37.5 MG tabletIndicati ons:Encounter for weight management Take 1 tablet (37.5 mg) by mouth in the morning. Take before meals. 30 tablet 5 05/03/20 25 Discontinued Encounters Date Type Department Care Team Description 05/03/2025 8:30 AM EDT Office Visit [facility] [address] [place] [phone] Justin Salazar, DO Well woman exam with routine gynecological exam 05/03/2025 Bamboo flowsheet [facility] [address] [place] [address] Justin Salazar DO 05/02/2025 Travel 03/17/2025 3:40 PM EDT Office [place] [address] Gwen Rodarte PA Encounter for weight management 03/17/2025 Bamboo flowsheet [facility] [address] [place] [address] Gwen Rodarte PA 03/16/2025 Travel 02/14/2025 8:30 AM EDT Office Visit [facility] [place] [address] Gwen Rodarte PA Encounter for weight management 02/14/2025 Bamboo flowsheet [facility] [address] [place] [address] Gwen Rodarte PA 02/07/2025 Travel from Last 3 Months Family History Medical History Relation Name Comments Lung cancer Maternal Grandfather Diabetes type II Maternal Grandmother Hypothyroidism Mother No Known Problems Sister Relation Name Status Comments Daughter Alive Father Alive Maternal Grandfather Maternal Grandmother Alive Mother Alive Paternal Grandfather Alive Paternal Grandmother Alive Sister Social History Tobacco Use Types Packs/Day Years Used Date Smoking Tobacco: Never Smokeless Tobacco: Never Tobacco Cessation:Counseling Given: Not Answered Alcohol Use Standard Drinks/Week Comments Yes 0 (1 standard drink = 0.6 oz pur e alcohol) occasional alcohol abuse Comments No Sex and Gender Information Value Date Recorded Sex Assigned at Choose not to disclose 10:04 AM EDT Legal Sex Female 7:12 PM EDT Gender Identity Choose not to disclose 10:04 AM EDT Sexual Orientation Not on file Last Filed Vital Signs Vital Sign Reading Time Taken Comments Blood Pressure 114/80 05/03/2025 9:01 AM EDT Pulse - - Temperature - - Respiratory Rate - - Oxygen Saturation - - Inhaled Oxygen Concentration - - Weight 94.5 kg (208 lb 4 oz) 05/03/2025 9:01 AM EDT Height 162.6 cm (5' 4 ) 11/27/2023 8:34 AM EST Body Mass Index 35.75 11/27/2023 8:34 AM EST Plan of Treatment Upcoming Encounters Date Type Department Care Team (Late st Contact Info) Description 06/08/2025 3:50 PM EDT Office Visit [facility] [address] [place] [address] Gwen Rodarte PA [address] [place] [address] Insurance BCBS Care Teams Germ Drier Relationship Specialty Start Date End Date Singh Sheridan MD [address] [place] [place] [phone] PCP - General Family Medicine 02/14/25
--- OUTSIDE RECORDS SUMMARY | 2025-05-03 15:13 | XMS_ITS | Patient Health Record ---
Author Organization [facility] [place] Address [address] [place] [address] Care Team Providers Care 7Th Grade Teacher Name Role Phone Myra Nye Primary Care Provider Allergies No Known Allergies Reason For Referral No Information Medications Medication SIG (Take, Route, Frequency, Duration) Notes Start Date End Date Status Triamcinolone Acetonide 0.5 % 1 application Externally Twice a day Active valACYclovir HCl 500 MG Oral for 90 Days Active Amoxicillin 500 MG 1 capsule Orally Twi ce a day for 10 days 02/10/2023 Active Aquaphor - as directed Externally Active Mupirocin 2 % 1 application Food Safety Officer ally Twice a day Active Social History Tobacco Use: Social History Observation Description Date Details (start date - stop date) Never Smoker NA - NA Tobacco Use/Smoking Question Answer Notes Patient is a nonsmoker Alcohol Screen (Audit-C) Question Answer Notes Did you have a drink contain ing alcohol in the past year? Yes How often did you have 6 or more drinks on one occasion in the past year? Never (0 point) How many drinks did you have on a typical day when you were drinking in the past year? 3 or 4 drinks (1 point) How often did you have a dri nk containing alcohol in the past year? Less than monthly (1 point) Points 2 Interpretation Negative Problems Problem Type SNOMED Code ICD Code Onset Dates Problem Status W/U Status Risk Notes Problem Cholecystitis (K81.9) Active confirmed Problem Boil ([id number]) Boil (L02.92) Active confirmed Plan Of Treatment No Information Insurance Providers Payer Name Payer Address Payer Phone Subscriber Number Group Number Insured Name Patient Relationship to Insured Coverage Start Date Coverage End Date [employer] ACC[employer] PPO PLUS LOCAL PLAN [address] [place] [phone] [id number] Belinda Chang Self - patient is the insured Medical (General) History Medical History History ICD Code Boil L02.92 Cholecystitis K81.9 Surgical History Surgery Date(Month/Year) Salpingectomy Gallbladder
--- OUTSIDE RECORDS SUMMARY | 2025-05-03 15:13 | XMS_ITS | Encounter Summary ---
Author Organization [facility] Address [address] [facility] [place] [address] Care Team Providers Care School Cleaner Name Role Phone Singh Sheridan MD Primary Care Provider [phone] Encounter Details Date Type Department Care Team (Late Contact Info) Description 05/03/2025 Bamboo flowsheet [facility] [address] [facility] [place] [address] Justin Salazar DO [address] [facility] [address] [facility] [address] [facility] [address] [place], [facility] Social History Tobacco Use Types Packs/Day Years [...] on file documented as of this encounter Plan of Treatment Upcoming Encounters Date Type Department Care Team (Late st Contact Info) Description 06/08/2025 3:50 PM EDT Office Visit [facility] [address] [facility] [place] [address] Gwen Rodarte PA [address] [facility] [address] [facility] [address] [place], [facility] documented as of this encounter Visit Diagnoses Not on filedocumented in this encounter Care Teams School Cleaner Relationship Specialty Start Date End Date Singh Sheridan MD [address] [place] [phone] PCP - General Family Medicine 02/14/25 documented as of this encounter
--- OUTSIDE RECORDS SUMMARY | 2025-05-03 15:13 | XMS_ITS | Encounter Summary ---
Author Organization [facility] Address [address] [facility] [place] [address] Care Team Providers Care Police Booking Officer Name Role Phone Singh Sheridan MD Primary Care Provider [phone] Encounter Details Date Type Department Care Team (Latest Contact Info) Description 05/02/2025 Travel Social History Tobacco Use Types Packs/Day Years [...] Description 06/08/2025 3:50 PM EDT Office Visit [facility] [address] [place] [phone] Gwen Rodarte PA [address] [facility] [address] [place], [place] [id number] documented as of this encounter Visit Diagnoses Not on filedocumented in this encounter Care Teams Police Booking Officer Relationship Specialty Start Date End Date Singh Sheridan MD [address] [facility] [place] [address] PCP - General Family Medicine 02/14/25 documented as of this encounter
--- OUTSIDE RECORDS SUMMARY | 2025-05-03 17:54 | XMS_ITS | CCD ---
Author Organization [facility] Care Team Providers Care Fire Chief'S Aide Name Role Phone ARISTIDES ., DR KELLY Consulting Unavailable ARISTIDES ., DR KELLY Primary Care Unavailable ARISTIDES ., DR KELLY Admitting Unavailable ARISTIDES ., DR KELLY Attending Unavailable ARISTIDES ., DR KELLY Primary Care Unavailable RADHA, TAHIR Attending Unavailable RADHA, TAHIR Consulting Unavailable TAHIR GARCIA Admitting Unavailable ARISTIDES ., DR KELLY Attending [...] Unavailable ARISTIDES ., DR KELLY Attending Unavailable Jamaal Almaraz MD Attending Provider Jamaal Almaraz Attending Unavailable Jamaal Almaraz Admitting Unavailable GORDO LICEA Attending Unavailable GORDO LICEA Attending Unavailable GORDO LICEA Attending Unavailable GORDO LICEA Attending Unavailable GORDO LICEA Attending Unavailable GORDO LICEA Attending Unavailable Medications Current Medications Medication Drug Class(es) Dates Sig (Normalized) Sig (Original) amoxicillin 500 mg oral capsule (1 source) Penicillin-class Antibacterial Start: 09-30-2024 take 1 capsule by mouth every twelve hours Amoxicillin 500 mg capsule Active 500 MG PO Every 12 hours 20 September 30, 2024 1:00am phentermine hydrochloride 37.5 mg oral tablet (1 source) Sympathomimetic Amine Anorectic Start: 09-30-2024 take 1 tablet by mouth once daily Phentermine 37.5 mg tablet Active 37.5 MG PO Daily September 30, 2024 1:00am valACYclovir 500 mg oral tablet (1 source) Herpesvirus Nucleoside Analog DNA Polymerase Inhibitor, Herpes Simplex Virus Nucleoside Analog DNA Polymerase Inhibitor, Herpes Zoster Virus Nucleoside Analog DNA Polymerase Inhibitor Start: 09-30-2024 take 1 tablet by mouth once daily Valacyclovir 500 mg tablet Active 500 MG PO Daily September 30, 2024 1:00am Problems Active Problems Problem Classification Problem Date Documented Da te Episodic/Chronic Other nutritional; endocrine; and metabolic disorders (1 source) Obesity, unspecified; Translations: [OBESITY UNSPECIFIED] Onset: 10-03-2022 Chronic Other nutritional; endocrine; and metabolic disorders (1 source) Body mass index (BMI) 36.0-36.9, adult; Translations: [BODY MASS INDEX BMI 36.0-36.9 ADULT] Onset: 10-03-2022 Chronic Other upper respiratory infections (6 sources) Acute pharyngitis, unspecified; Translations: [Streptococcal sore throat] Onset: 02-10-2023 Episodic Unclassified (1 source) CONTACT [...] Test Name Value Interpretation Reference Range Facility Urine Cultureon 12-14-2024 Bacteria identified Cx Nom (U) <9,000 colonies/ml mixed bacterial skin contaminants 2 Days PERFORMED BY: [place] [address] PATHOLOGIST [employer] MECHANIC ADELA BENITEZ M.D. Normal [facility] Comment on above: Performed By: #### C UU #### [address] Influenza virus A and B and SARS-CoV-2 (COVID-19) RNA panel - Respiratory system specon 09-30-2024 Influenza virus A and B RNA and SARS-CoV-2 (COVID-19) N gene panel FOUZIA+probe (Resp) Influenza virus A and B and SARS-CoV-2 (COVID-19) RNA panel - Respiratory system spec [facility] - Microbiology an d Antimicrobial susceptibilityon 09-30-2024 SARS-CoV-2 (COVID-19) RNA FOUZIA+probe Ql (Unsp spec) Negative [facility] No Panel Informationon 09-30 POC Influenza B (FOUZIA) Negative [facility] No Panel InformationOrdered By: Carole Wisdom on 09-30-2024 Quick Strep (POC) [facility] STREPT SCREENon 02-10-2023 STREP SCREEN A Positive Abnormal NEGATIVE [facility] Comment on above: Performed By: #### S SCRN #### [facility] [address] [place] [address] Dr. Imtiaz Ramírez CBC AUTO DIFFon 09-27-2022 BASO # 0.0 103/ul Normal 0.0-0.1 [facility] Comment on above: Performed By: #### C BC #### [facility] [address] [address] [address] Imtiaz Ramírez Basophils/100 WBC (Bld) 0.4 % Normal 0.2-2.0 [facility] Comment on above: Performed By: #### C BC #### [facility] [address] [place] [address] Dr. Imtiaz Ramírez EO # 0.1 103/ul Normal 0.0-0.7 [facility] Comment on above: Performed By: #### C BC #### [facility] [address] [place] [address] Dr. Imtiaz Ramírez Eosinophils/100 WBC (Bld) 1.7 % Normal 0.9-7.0 [facility] Comment on above: Performed By: #### C BC #### [facility] [address] [place] [address] Dr. Imtiaz Ramírez Erythrocyte distribution width (RBC) [Ratio] 11.3 % Normal 11.0-15.0 [facility] Comment on above: Performed By: #### C BC #### [facility] [address] [place] [address] Dr. Imtiaz Ramírez Hematocrit (Bld) [Volume fraction] 40.7 % Normal 36.0-48.0 [facility] Comment on above: Performed By: #### C BC #### [facility] [address] [place] [address] Dr. Imtiaz Ramírez Hemoglobin (Bld) [Mass/Vol] 13.7 g/dL Normal 12.0-16.0 [facility] Comment on above: Performed By: #### C BC #### [facility] [address] [place] [address] Dr. Imtiaz Ramírez IG # 0.01 10e3/ul Normal 0.00-0.03 [facility] Comment on above: Performed By: #### C BC #### [facility] [address] [place] [address] Dr. Imtiaz Ramírez IG % 0.2 % Normal 0.0-0.5 [facility] Comment on above: Performed By: #### C BC #### [facility] [address] [place] [address] Dr. Imtiaz Ramírez LYMPH # 2.1 103/ul Normal 1.2-3.8 [facility] Comment on above: Performed By: #### C BC #### [facility] [address] [place] [address] Dr. Imtiaz Ramírez Lymphocytes/100 WBC (Bld) 43.3 % Normal 20.5-60.0 [facility] Comment on above: Performed By: #### C BC #### [facility] [address] [place] [address] Dr. Imtiaz Ramírez MANUAL DIFF REQ NO Normal [facility] Comment on above: Performed By: #### C BC #### [facility] [address] [place] [address] Dr. Imtiaz Ramírez MCH (RBC) [Entitic mass] 29.9 pg Normal 26.7-34.0 [facility] Comment on above: Performed By: #### C BC #### [facility] [address] [place] [address] Dr. Imtiaz Ramírez MCHC (RBC) [Mass/Vol] 33.7 g/dL Normal 29.9-35.2 [facility] Comment on above: Performed By: #### C BC #### [facility] [address] [place] [address] Dr. Imtiaz Ramírez MCV (RBC) [Entitic vol] 88.9 fL Normal 81.0-99.0 [facility] Comment on above: Performed By: #### C BC #### [facility] [address] [place] [address] Dr. Imtiaz Ramírez MONO # 0.5 103/ul Normal 0.3-0.8 [facility] Comment on above: Performed By: #### C BC #### [facility] [address] [place] [address] Dr. Imtiaz Ramírez Monocytes/100 WBC (Bld) 9.5 % Normal 1.7-12.0 [facility] Comment on above: Performed By: #### C BC #### [facility] [address] [place] [address] Dr. Imtiaz Ramírez NEUT # 2.1 103/ul Normal 1.4-6.5 [facility] Comment on above: Performed By: #### C BC #### [facility] [address] [place] [address] Dr. Imtiaz Ramírez Neutrophils/100 WBC (Bld) 44.9 % Normal 43.0-75.0 [facility] Comment on above: Performed By: #### C BC #### [facility] [address] [place] [address] Dr. Imtiaz Ramírez Platelet mean volume (Bld) [Entitic vol] 10.6 fL Normal 9.5-13.5 [facility] Comment on above: Performed By: #### C BC #### [facility] [address] [place] [address] Dr. Imtiaz Ramírez PLT 284 103/ul Normal 150-450 [facility] Comment on above: Performed By: #### C BC #### [facility] [address] [place] [address] Dr. Imtiaz Ramírez RBC 4.58 106/ul Normal 4.20-5.40 [facility] Comment on above: Performed By: #### C BC #### [facility] [address] [place] [address] Dr. Imtiaz Ramírez WBC 4.8 103/ul Normal 4.0-11.0 [facility] Comment on above: Performed By: #### C BC #### [facility] [address] [place] [address] Dr. Imtiaz Ramírez Covid-19 PCR ([facility])on 09-06 SARS-CoV-2 (COVID-19) RNA FOUZIA+probe Ql (Unsp spec) Not detected Normal NOT DETECTED [facility] Comment on above: Result Comment: This test is not yet approved or cleared by the [place] FDA. When there are no FDA-approved or cleared tests available, and other criteria are met, FDA can make tests available under an emergency access mechanism called an Emergency Use Authorization (EUA). The EUA for this test is supported by the Economic Research Analyst of Health and Human Service's (HHS's) declaration [...] SARS-CoV-2. Performed By: #### C VDTBH #### [facility] [address] [place] [address] Dr. Imtiaz Ramírez PREG QUANT HCGon 09-27-2022 HCG QUANT 1 mIU/mL Normal [facility] Comment on above: Performed By: #### P REGQNT #### [facility] [address] [place] [address] Dr. Imtiaz Ramírez HCG RANGE SEE BELOW [facility] Comment on above: Result Comment: 5-50 0.2-1 WEEK 50-500 1-2 WEEKS 100-5,000 2-3 WEEKS 500-10,000 3-4 WEEKS 1,000-50,000 4-5 WEEKS 10,000-100,000 5-6 WEEKS 15,000-200,000 6-8 WEEKS 10,000-100,000 2-3 MONTHS Performed By: #### P REGQNT #### [facility] [address] [place] [address] Dr. Imtiaz Ramírez PAP ACOG PANEL 2: 30 to 65on 07-21-2022 . . Normal [facility] Comment on above: Result Comment: Perf ormed at: WB Performed By: #### [id number] #### [facility] [address] [place] [address] Dr. Imtiaz Ramírez Age Gdln ACOG Testing 30-65 Normal [facility] Comment on above: Performed By: #### [id number] #### [facility] [address] [place], [place] [id number] Dr. Imtiaz Ramírez DIAGNOSIS: Comment Normal [facility] Comment on above: Result Comment: NEGA TIVE FOR INTRAEPITHELIAL LESION OR MALIGNANCY. Performed at: WB Performed By: #### [id number] #### [facility] [address] [place] [address] Dr. Imtiaz Ramírez HPV Aptima Negative Normal Negative [facility] Comment on above: Result Comment: This nucleic acid amplification test detects fourteen high-risk HPV types (16,18,31,33,35,39,45,51,52,56,58,59,66,68) without differentiation. Performed at: =G Performed By: #### [id number] #### [facility] [address] [place] [address] Dr. Imtiaz Ramírez Methodology: Comment Normal [facility] Comment on above: Result Comment: This liquid based ThinPrep(R) pap test was screened with the use of an image guided system. Performed at: WB Performed By: #### [id number] #### [facility] [address] [place] [address] Dr. Imtiaz Ramírez Note: Comment Normal [facility] Comment on above: Result Comment: The Pap smear is a screening test designed to aid in the detection of premalignant and malignant conditions of the uterine cervix. It is not a diagnostic procedure and should not be used as the sole means of detecting cervical cancer. Both false-positive and false-negative reports do occur. . Performed at: WB Performed By: #### [id number] #### [facility] [address] [place] [address] Dr. Imtiaz Ramírez Performed by: Comment Normal [facility] Comment on above: Result Comment: Anders Foster, Champion Of Sustainable Design (ASCP) Performed at: WB Performed By: #### [id number] #### [facility] [address] [place] [address] Dr. Imtiaz Ramírez Specimen adequacy: Comment Normal [facility] Comment on above: Result Comment: Sati sfactory for evaluation. Endocervical and/or squamous metaplastic cells (endocervical component) are present. Performed at: WB Performed By: #### [id number] #### [facility] [address] [place] [address] Dr. Imtiaz Ramírez CBC AUTO DIFFon 07-15-2022 BASO # 0.0 103/ul Normal 0.0-0.1 [facility] Comment on above: Performed By: #### C BC #### [facility] [address] [place] [address] Dr. Imtiaz Ramírez Basophils/100 WBC (Bld) 0.4 % Normal 0.2-2.0 [facility] Comment on above: Performed By: #### C BC #### [facility] [address] [place] [address] Dr. Imtiaz Ramírez EO # 0.1 103/ul Normal 0.0-0.7 [facility] Comment on above: Performed By: #### C BC #### [facility] [address] [place] [address] Dr. Imtiaz Ramírez Eosinophils/100 WBC (Bld) 1.7 % Normal 0.9-7.0 [facility] Comment on above: Performed By: #### C BC #### [facility] [address] [place] [address] Dr. Imtiaz Ramírez Erythrocyte distribution width (RBC) [Ratio] 11.7 % Normal 11.0-15.0 [facility] Comment on above: Performed By: #### C BC #### [facility] [address] [place] [address] Dr. Imtiaz Ramírez Hematocrit (Bld) [Volume fraction] 38.6 % Normal 36.0-48.0 [facility] Comment on above: Performed By: #### C BC #### [facility] [address] [place] [address] Dr. Imtiaz Ramírez Hemoglobin (Bld) [Mass/Vol] 12.9 g/dL Normal 12.0-16.0 [facility] Comment on above: Performed By: #### C BC #### [facility] [address] [place] [address] Dr. Imtiaz Ramírez IG # 0.02 10e3/ul Normal 0.00-0.03 [facility] Comment on above: Performed By: #### C BC #### [facility] [address] [place] [address] Dr. Imtiaz Ramírez IG % 0.3 % Normal 0.0-0.5 [facility] Comment on above: Performed By: #### C BC #### [facility] [address] [place] [address] Dr. Imtiaz Ramírez LYMPH # 2.3 103/ul Normal 1.2-3.8 [facility] Comment on above: Performed By: #### C BC #### [facility] [address] [place] [address] Dr. Imtiaz Ramírez Lymphocytes/100 WBC (Bld) 30.8 % Normal 20.5-60.0 [facility] Comment on above: Performed By: #### C BC #### [facility] [address] [place] [address] Dr. Imtiaz Ramírez MANUAL DIFF REQ NO Normal [facility] Comment on above: Performed By: #### C BC #### [facility] [address] [place] [address] Dr. Imtiaz Ramírez MCH (RBC) [Entitic mass] 30.2 pg Normal 26.7-34.0 [facility] Comment on above: Performed By: #### C BC #### [facility] [address] [place] [address] Dr. Imtiaz Ramírez MCHC (RBC) [Mass/Vol] 33.4 g/dL Normal 29.9-35.2 [facility] Comment on above: Performed By: #### C BC #### [facility] [address] [place] [address] Dr. Imtiaz Ramírez MCV (RBC) [Entitic vol] 90.4 fL Normal 81.0-99.0 [facility] Comment on above: Performed By: #### C BC #### [facility] [address] [place] [address] Dr. Imtiaz Ramírez MONO # 0.7 103/ul Normal 0.3-0.8 [facility] Comment on above: Performed By: #### C BC #### [facility] [address] [place] [address] Dr. Imtiaz Ramírez Monocytes/100 WBC (Bld) 9.9 % Normal 1.7-12.0 [facility] Comment on above: Performed By: #### C BC #### [facility] [address] [place] [address] Dr. Imtiaz Ramírez NEUT # 4.2 103/ul Normal 1.4-6.5 [facility] Comment on above: Performed By: #### C BC #### [facility] [address] [place] [address] Dr. Imtiaz Ramírez Neutrophils/100 WBC (Bld) 56.9 % Normal 43.0-75.0 [facility] Comment on above: Performed By: #### C BC #### [facility] [address] [place] [address] Dr. Imtiaz Ramírez Platelet mean volume (Bld) [Entitic vol] 10.7 fL Normal 9.5-13.5 [facility] Comment on above: Performed By: #### C BC #### [facility] [address] [place] [address] Dr. Imtiaz Ramírez PLT 286 103/ul Normal 150-450 [facility] Comment on above: Performed By: #### C BC #### [facility] [address] [place] [address] Dr. Imtiaz Ramírez RBC 4.27 106/ul Normal 4.20-5.40 [facility] Comment on above: Performed By: #### C BC #### [facility] [address] [place] [address] Dr. Imtiaz Ramírez WBC 7.4 103/ul Normal 4.0-11.0 [facility] Comment on above: Performed By: #### C BC #### [facility] [address] [place] [address] Dr. Imtiaz Ramírez FREE T4on 07-15-2022 Free T4 [Mass/Vol] 0.77 ng/dL Normal 0.76-1.46 [facility] Comment on above: Performed By: #### F T4 #### [facility] [address] [place] [address] Dr. Imtiaz Ramírez GLYCOHEMOGLOBIN A1Con 2021 ADA RECOMMENDATION SEE BELOW Normal [facility] Comment on above: Result Comment: ADA RECOMMENDED LIMIT 4.0 - 6.0 ADA THERAPEUTIC TARGET < 7.0 ACTION SUGGESTED > 7.0 Performed By: #### A 1C #### [facility] [address] [address] [address] Imtiaz Ramírez Glucose [Mass/Vol] 97 mg/dL Normal [facility] Comment on above: Performed By: #### A 1C #### [facility] [address] [place], [place] [address] Dr. Imtiaz Ramírez HbA1c (Bld) [Mass fraction] 5.0 % Normal 4.5-6.2 [facility] Comment on above: Performed By: #### A 1C #### [facility] [address] [address] [address] Imtiaz Ramírez TSHon 07-15-2022 TSH 3.280 uIU/mL Normal 0.358-3.740 [facility] Comment on above: Performed By: #### T SH #### [facility] [address] [address] [address] Imtiaz Ramírez Vital Signs Date Time Vital Sign Value Performing Clinician Faci lity 09-30-2024 19:18-0500 Diastolic blood pressure 75 mm[Hg] Jamaal Almaraz MD Work Phone: [facility] 09-30-2024 19:18-0500 Systolic blood pressure 117 mm[Hg] Jamaal Almaraz MD Work Phone: [facility] 09-30-2024 18:46-0500 Body height 162.56 cm Jamaal Almaraz MD Work Phone: [facility] 09-30-2024 18:46-0500 Body mass index (BMI) [Ratio] 33.5 kg/m2 Jamaal Almaraz MD Work Phone: [facility] 09-30-2024 18:46-0500 Body temperature 98.2 [degF] Jamaal Almaraz MD Work Phone: [facility] 09-30-2024 18:46-0500 Body weight 88.56 kg Jamaal Almaraz MD Work Phone: [facility] 09-30-2024 18:46-0500 Heart rate 95 /min Jamaal Almaraz MD Work Phone: [facility] 09-30-2024 18:46-0500 Respiratory rate 14 /min Jamaal Almaraz MD Work Phone: [facility] 09-30-2024 18:46-0500 SaO2% (BldA) [Mass fraction] 99 % Jamaal Almaraz MD Work Phone: [facility] Encounters Encounter Date Encounter Type Care Provider Facility Start: 03-17-2025 End: 03-17-2025 ambulatory GORDO ANUJA Not Available Start: 02-14-2025 End: 02-14-2025 ambulatory GORDO ANUJA Not Available Start: 12-14-2024 End: 12-14-2024 ambulatory Jamaal Almaraz [facility] Work Phone: Start: 12-14-2024 End: 12-14-2024 Departed Referred Jamaal Almaraz MD Work Phone: [facility] Start: 11-16-2024 End: 11-16-2024 ambulatory GORDO ANUJA Not Available Start: 09-30-2024 End: 09-30-2024 Patient encounter procedure Jamaal Almaraz MD Work Phone: [facility] Work Phone: Start: 08-24-2024 End: 08-24-2024 ambulatory GORDO ANUJA Not Available Start: 05-25-2024 End: 05-25-2024 ambulatory GORDO ANUJA Not Available Start: 04-22-2024 End: 04-22-2024 ambulatory GORDO ANUJA Not Available Start: 02-10-2023 End: 02-10-[address] LETICIA SALAZAR . Facility:[facility] Start: 10-03-2022 Encounter for preprocedural laboratory examination DR LETICIA SALAZAR . [facility] Start: 09-30-2022 End: 09-30-[address] LETICIA SALAZAR . Facility:[facility] Start: 09-27-2022 End: 09-28-[address] LETICIA SALAZAR . Facility:[facility] Start: 09-27-2022 End: 09-28-2022 Encounter for preprocedural laboratory examination DR LETICIA SALAZAR . Facility:[facility] Start: 09-21-2022 Encounter for other preprocedural examination DR LETICIA SALAZAR . [facility] Start: 09-16-2022 End: 09-17-[address] LETICIA SALAZAR . Facility:[facility] Start: 09-16-2022 End: 09-17-2022 Encounter for other preprocedural examination DR LETICIA SALAZAR . Facility:[facility] Start: 07-15-2022 End: 07-15-[address] LETICIA SALAZAR . Facility:[facility] Start: 07-15-2022 End: 07-16-[address] LETICIA SALAZAR . Facility:[facility] Procedures Date Procedure Procedure Detail Performing Clinician Start: 09-30-2024 Quick Strep (POC) Jamaal Almaraz MD Work Phone: Plan of Treatment Date Care Activity Detail Author Start: 12-14-2024 Bacteria identified in Urine by Culture Urine Culture [facility] Start: 12-14-2024 Urine culture [facility] Payers Date Payer Category Payer Self-pay 1985 Unknown [id number] 2.16.84 [id number] 1987 Unknown [id number] 2.16.84 [id number] 1987 Unknown [id number] 2.16.84 [id number] 1987 Unknown [id number] 2.16.84 [id number] 1987 Unknown [id number] 2.16.84 [id number] 1987 Unknown [id number] 2.16.84 [id number] 1987 Unknown [id number] 2.16.8 [id number] 1987 Unknown [id number] 2.16.84 [id number] 1987 Unknown [id number] 2.16.84 [id number] 1987 Unknown [id number] 2.16.84 [id number] 1987 Unknown [id number] 2.16.84 [id number] 1987 Unknown [id number] 2.16.84 [id number] 1959 Unknown [id number] 1959 Unknown [id number] Unknown [id number] 2.16.8 [id number] Social History Date Type Detail Facility Start: 09-30-[address] [facility] Never smoked tobacco (finding) [facility] Start: 12-15-2024 Sex Female (finding) [facility] Start: 1985 Sex Assigned At Female F [facility] Evaluation note 09-30-2024 Note Date & Type Note Facility 09-30-2024 Evaluation note Diagnosis Onset Date Resolution Strep pharyngitis acute Decembe r 2023 6:01pm [facility] Work Phone: Clinical Note 09-30-2022 Note Date & Type Note Facility 09-30-2022 Note OPERATIVE NOTE OPERATION DATE: 09/30/2022 PROCEDURE: Robotic Da Elijah assisted bilateral laparoscopic salpingectomy. PREOPERATIVE DIAGNOSIS: Desires permanent sterilization, multiparity. POSTOPERATIVE DIAGNOSIS: Desires permanent sterilization, multiparity. ANESTHESIA: General. SURGEON: Leticia Salazar D.O. MACHINE ADJUSTER LEADER CASE TRIM: WILIAN Patten URINE OUTPUT: Yellow and clear. [...] and needle counts were correct x2. [facility] Summary Purpose Family History No Family History Records FoundNo Family History Records FoundNo Family History Records Found Advance Directives No Advanced Directives Records Found Advance Directive Response Recorded Date/ Time Advance Directives No September 6:57pm Chief Complaint and Reason for Visit Chief Complaint Admit Date Cough, congestion, sore throat September 30, 2024 6:01pm Unknown December 14, 2024 2:5 5am Reason for Visit Admit Date Strep pharyngitis September 30, 2024 6:01pm Additional Source Comments INFORMATION SOURCE (unrecogn ized section and content) DATE CREATED AUTHOR 02/14/2023 [facility] DATE CREATED AUTHOR AUTHOR'S ORGANIZ ATION 12/17/2024 [facility] DATE CREATED AUTHOR AUTHOR'S ORGANIZ ATION 03/20/2025 [facility] EPIC Care Teams (unrecognized sec tion and content) Team Status: Inactive Member Role Status Dates PADMINI Antunez Primary Care Provider Active Start: September 30, 2024 End: September 30, 2024 Carole Wisdom APRN Attending Provider Active Start: September 30, 2024 End: September 30, 2024 Team Status: Inactive Member Role Status Dates Jamaal Almaraz MD Attending Provider Active St art: December 14, 2024 End: December 14, 2024 Goals (unrecognized section and content) Goals may be documented in a n alternate section FOR RECORDS PERTAINING TO PATIENTS WHO ARE [...] BE BASED ON THE PRIMARY CLINICAL RECORDS. [facility] [employer] [facility]. provides no warranty or guarantee of the accuracy or completeness of information in this document.
[2025-05-05 11:11] LABS: Age Gdln ACOG Testing Note (.); IGP, Aptima HPV, rfx 16/18,45 Note (.)
== END 2025-05-03 15:11 | disposition home or self-care (01) ==
LOC: LAB 15:10
PROVIDERS: Visit Provider Obstetrics & Gynecology
DX: Z01.419 Encounter for gynecological examination (general) (routine) without abnormal findings (principal)
CPT/HCPCS: 87624; 88175